=== PATIENT | male | born 1980 | race Caucasian/White ===

== ENCOUNTER 2018-09-09 13:09 | Outpatient (CLI) | payer OTHER ==
[2018-09-09 14:21] LABS: ALBUMIN 4.2 g/dL (3.4-5.0); ANION GAP 12.4 (8-16); CARBON DIOXIDE 30.5 mmol/L (21-32); CREATININE 1.5 mg/dL (0.7-1.3); POTASSIUM 3.9 mmol/L (3.5-5.1); TOTAL BILIRUBIN 0.7 mg/dL (0.0-1.0)
== END 2018-09-09 18:01 | disposition home or self-care (01) ==
LOC: MLB 13:09
PROVIDERS: ATTEND Family Medicine
DX: E29.1 Testicular hypofunction (principal)
CPT/HCPCS: 36415; 73130; 80053; 84403; 86360; 86592; 87522

== ENCOUNTER 2019-01-13 10:52 | Outpatient (CLI) | payer OTHER | END 2019-01-13 20:35 | disposition home or self-care (01) | LOC: MRD 10:52 | PROVIDERS: ATTEND Neuromusculoskeletal Medicine, Sports Medicine | DX: M25.512 Pain in left shoulder (principal) | CPT/HCPCS: 73030 ==

== ENCOUNTER 2019-05-12 15:49 | Outpatient (CLI) | payer OTHER | END 2019-05-12 20:06 | disposition home or self-care (01) | LOC: MLB 15:49 | PROVIDERS: ATTEND Family Medicine | DX: Z53.9 Procedure and treatment not carried out, unspecified reason (principal) | CPT/HCPCS: 36415 ==

== ENCOUNTER 2022-05-21 12:23 | Emergency (ER) | payer OTHER ==
[~2022-05-21] VITALS: Ht 167.6 cm; Wt 66.7 kg
[2022-05-21 12:32] VITALS: BP 162/91
--- NOTE | 2022-05-21 12:40 | NUR ---
PT AMBULATED WITH STEADY GAIT TO BED 12
--- NOTE | 2022-05-21 12:45 | NUR ---
41 Y/O MALE BIB SELF PER PT HE WAS RECENTLY DIAGNOSED WITH SYPHILIS IN HIS DOCTORS OFFICE AND IS REQUESTING AN ABX SHOT, STATING HIS PCP DOES NOT CARRY IT. C/O OF STINGING SENSATION IN HIS PENIS AREA SOMETIMES PMH: HIV NKA Addendum: 05/21/22 at 1254 by [email or web address] NOTED RASHES ON PT TORSO, ACHING JOINTS
--- NOTE | 2022-05-21 13:05 | NUR ---
DANNY SAMAYOA AT BEDSIDE FOR EVAL
[2022-05-21] MEDS ORDERED: PENICILLIN G BENZATHINE C-R 1.2 MU/2 ML SYR IM ONE (13:15)
[2022-05-21] MEDS ORDERED: LIDOCAINE MPF 1% 10 MG/ML VIAL INJ ONE (13:15)
[2022-05-21] MEDS ORDERED: [UNRECOGNIZED DRUG - CODE] PO (13:37)
--- NOTE | 2022-05-21 13:53 | NUR ---
Patient discharged with v/s stable. Written and verbal after care instructions ABOUT SYPHILIS given and explained. Patient alert, oriented and verbalized understanding of instructions. Ambulatory with steady gait. All questions addressed prior to discharge. ID band removed. Patient advised to follow up with PMD. Rx DOXYCYCLINE MONOHYDRATE of given. Patient educated on indication of medication including possible reaction and side effects. Opportunity to ask questions provided and answered.
== END 2022-05-21 13:53 | disposition home or self-care (01) ==
LOC: EEVIPCON 12:23 → MED 12:23
DX: A51.0 Primary genital syphilis (principal); R03.0 Elevated blood-pressure reading, without diagnosis of hypertension
CPT/HCPCS: 96372; 99283; J0558; J2001

== ENCOUNTER 2022-12-18 11:19 | Emergency (ER) | payer OTHER ==
[~2022-12-18] VITALS: Ht 167.6 cm; Wt 65.4 kg
[~2022-12-18 11:19] MED LIST: [UNRECOGNIZED DRUG - CODE] PO
[2022-12-18 11:30] VITALS: BP 128/84
[2022-12-18] MEDS ORDERED: LIDOCAINE MPF 1% 10 MG/ML VIAL INJ ONE (13:40)
[2022-12-18] MEDS ORDERED: HYDR-2734 TP (15:11)
== END 2022-12-18 15:15 | disposition home or self-care (01) ==
LOC: MED 11:19
DX: K64.5 Perianal venous thrombosis (principal); Z79.899 Other long term (current) drug therapy
CPT/HCPCS: 46040; 99284; J2001

== ENCOUNTER 2024-03-18 14:30 | Outpatient (CLI) | payer OTHER ==
[~2024-03-18 14:30] MED LIST changes: +HYDR-2734 TP
[2024-03-18 17:22] LABS: BASOPHILS % (AUTO) 0.5 % (0.0-2.0); EOSINOPHILS # (AUTO) 0.2 K/uL (0-0.4); EOSINOPHILS % (AUTO) 2.5 % (0.0-4.0); HEMATOCRIT 46.8 % (36-52); HEMOGLOBIN 15.9 g/dL (12.0-18.0); LYMPHOCYTES # (AUTO) 2.3 K/uL (2.0-11.5); LYMPHOCYTES % (AUTO) 29.5 % (20.5-51.1); MEAN CORPUSCULAR HEMOGLOBIN 34 pg (27-31); MEAN CORPUSCULAR HGB CONC 34 g/dL (33-37); MEAN CORPUSCULAR VOLUME 101.4 fL (80-94); MONOCYTES # (AUTO) 0.4 K/uL (0.8-1.0); MONOCYTES % (AUTO) 5.1 % (1.7-9.3); NEUTROPHILS % (AUTO) 62.4 % (42.2-75.2); PLATELET COUNT (AUTO) 318 K/uL (140-450); RED BLOOD CELL COUNT(AUTO) 4.61 MIL/uL (4.20-6.10); RED CELL DISTRIBUTION WIDTH 12.6 % (11.6-13.7)
[2024-03-18 17:36] LABS: ANION GAP 14.6 (8-16); CALCIUM 9.1 mg/dL (8.5-10.1); CARBON DIOXIDE 28.5 mmol/L (21-32); CREATININE 1.5 mg/dL (0.6-1.3); POTASSIUM 4.1 mmol/L (3.5-5.1); TOTAL BILIRUBIN 0.8 mg/dL (0.0-1.0); TOTAL PROTEIN, SERUM 7.2 g/dL (6.4-8.2)
[2024-03-21 06:08] LABS: HIV 1 QUANT REAL-TIME PCR <20 copies/mL (.)
== END 2024-03-18 19:23 | disposition home or self-care (01) ==
LOC: MLB 14:30
DX: B20 Human immunodeficiency virus [HIV] disease (principal)
CPT/HCPCS: 36415; 80053; 85025; 86592; 87522